=== PATIENT | male | born 1965 | race Caucasian/White ===

== ENCOUNTER 2016-07-27 19:57 | Emergency (ER) | payer OTHER ==
[2016-07-27 23:46] VITALS: BP 142/95
== END 2016-07-27 23:03 | disposition left against medical advice (07) ==
LOC: ED 19:57
DX: Z53.21 Procedure and treatment not carried out due to patient leaving prior to being seen by health care provider (principal)

== ENCOUNTER 2019-11-01 10:29 | Observation (INO) | payer OTHER, SELFPAY ==
[~2019-11-01] VITALS: Ht 172.7 cm; Wt 90.3 kg
--- NOTE | 2019-11-01 10:36 | NUR ---
EKG COMPLETED AT BEDSIDE BY KEITH KATZ, SIGNED BY DR VELASCO AND PLACED IN PT'S CHART.
--- NOTE | 2019-11-01 10:40 | NUR ---
PLACED IN BED OB FOR EVAL.
--- NOTE | 2019-11-01 11:00 | NUR ---
PT ARRIVES ALERT AND ORIENTED WITH ABD PAIN /. ABD ROUND AND FIRM WITH NO PALP MASSES PRESENT. C/O N/V/D SINCE WEDNESDAY AFTER TAKING AMOXICILLIN FOR A TOOTH INFECTION. PT ONLY TOOK 2 DAYS OF AB DUE TO THE N/V. PT ARRIVES SLIGHLTY PALE WITH DIAPHORESIS. DENIES FEVER BUT CLAIMS HE HAS CHILLS. CONNECTED TO [employer] AND AWAITING MD ALVARENGA
--- NOTE | 2019-11-01 11:22 | NUR ---
DR VELASCO SAW PT FOR EVAL
--- NOTE | 2019-11-01 11:33 | NUR ---
XRAY AT BEDSIDE
[2019-11-01 11:35] LABS: BASOPHIL % 0.5 % (0-2); PLATELET COUNT 333 x10^3mcL (130-400); RED CELL DISTRIBUTION WIDTH 13.1 % (11.5-14.5)
--- NOTE | 2019-11-01 12:00 | NUR ---
SPOKE TO DR VELASCO, NEW ORDER FOR PAIN MEDICATION, PT UNABLE TO URINATE AT THIS TIME.
[2019-11-01 12:04] LABS: CALCIUM 9.6 mg/dL (8.5-10.1); CARBON DIOXIDE 16.1 mmol/L (21-32); CHLORIDE SERUM 97 mmol/L (98-107); CREATININE SERUM 1.1 mg/dL (0.7-1.3); GFR1 > 60 mL/min; GLUCOSE SERUM 116 mg/dL (74-106); POTASSIUM SERUM 3.9 mmol/L (3.5-5.1); SODIUM SERUM 135 mmol/L (136-145)
[2019-11-01 12:08] LABS: ALBUMIN 4.3 g/dL (3.4-5.0); ALKALINE PHOSPHATASE 63 U/L (46-116); ALT/SGPT 18 U/L (16-63); AST/SGOT 16 U/L (15-37); BILIRUBIN TOTAL 1.2 mg/dL (0.20-1.00); LIPASE 95 IU/L (73-393)
--- NOTE | 2019-11-01 12:58 | NUR ---
PT LEFT FOR CT VIA RNEY
--- NOTE | 2019-11-01 13:33 | NUR ---
PT BACK FROM CT AND CONNECTED TO [employer]. NO VOMITING UPON ARRIVAL
[2019-11-01] MEDS ORDERED: TOPROL XL50 MG PO (14:12)
[2019-11-01] MEDS ORDERED: GRALISE600 MG PO (14:12)
--- NOTE | 2019-11-01 14:12 | NUR ---
PT UNABLE TO URINATE AT THIS TIME
--- NOTE | 2019-11-01 15:02 | NUR ---
CALLED DIANNE FOR REPORT. WILL CALL BACK TO ED WHEN READY FOR REPORT
--- NOTE | 2019-11-01 15:09 | NUR ---
REPORT GIVEN TO DIANNE HOROWITZ
--- NOTE | 2019-11-01 15:34 | NUR ---
RECEIVED PT FROM ED VIA WHEELCHAIR, CAME IN DUE TO NAUSEA, VOMITING AND ABDOMINAL PAIN. AAOX4. DENIES HEADACHE/DIZZINESS. NO SOB NOTED. DENIES COUGH. DENIES CHEST PAIN/PRESSURE. ABDOMEN IS DISTENDED AND FIRM. STATED THAT HE FEELS BLOATED AND HAS NAUSEA. LAST BM WAS ON 10/28/19, STARTED WITH DIARRHEA AND HAD LOOSE STOOLS AFTER. VOIDS. IV SITE PATENT AND INTACT. BP-164/107, PT STATED THAT HE HAS NOT BEEN TAKING HIS BLOOD PRESSURE MEDICATIONS DUE TO NAUSEA AND VOMITING. SIDE RAILS UPX2. CALL LIGHT ON REACH. PRIMARY NURSE DIANNE AT BEDSIDE FOR CONTINUITY OF CARE
[2019-11-01 15:56] VITALS: BP 164/107
[2019-11-01 15:58] VITALS: Ht 172.7 cm; Wt 90.3 kg
--- NOTE | 2019-11-01 18:32 | NUR ---
PT LYING IN BED A/A. ORIENTED X4. BREATHING EQUAL/UNLABORED ON RA. NO ACUTE CHANGES/DISTRESS. PT HAS ABD PAIN, ANNETTE. NO N/V. IVF INFUSING, SITE WNL. BED IN LOW POSITION, CALL LIGHT IN REACH, SAFETY PRECAUTIONS IN PLACE. WILL CONTINUE TO MONITOR AND ENDORSE TO NIGHT NURSE
[2019-11-01 19:57] VITALS: BP 187/99
--- NOTE | 2019-11-01 20:00 | NUR ---
PATIENT RECEIVED AWAKE, ALERT, ORIENTED X4 IN BED. RESPIRATION EVEN AND UNLABORED, ON ROOM AIR. DENIES DISCOMFORT AT THIS TIME. SALINE LOCK TO L AC PATENT AND INTACT. SKIN DRY AND INTACT. WILL CONTINUE TO MONITOR.
--- NOTE | 2019-11-01 20:26 | NUR ---
RECIEVED PT FROM SELMA.
--- NOTE | 2019-11-01 20:28 | NUR ---
REPORT GIVEN TO CELESTINA BARTON FOR CONTINUATION OF CARE.
--- NOTE | 2019-11-01 20:43 | NUR ---
PT BP:187/99. DR. GOLD NOTIFIED, NEW ORDERS RECIEVED.
--- NOTE | 2019-11-02 03:10 | NUR ---
PT RESTING COMFORTABLY IN BED, EASILY AROUSABLE. RR EVEN AND UNLABORED ON RA, CHEST RISING EQUALLY. NO SIGNS OF ACUTE CHANGE OR DISTRESS NOTED. BED IN LOWEST POSITION, SIDE RAILS UP X2, AND CALL LIGHT WITHIN REACH. WILL CONTINUE TO MONITOR.
[2019-11-02 05:42] VITALS: BP 176/95
--- NOTE | 2019-11-02 07:10 | NUR ---
RECIEVED BEDSIDE REPORT FROM NIGHT RN. PT AOX4 AND ABLE TO MAKE NEEDS KNOWN. RR EVEN AND UNLABORED ON RA. PT MED SURG. DROPLET PRECAUTIONS IN PLACE. PT AMBULATORY. IV IN LAC CDI WITH NO REDNESS OR SWELLING. CALL LIGHT WITHIN REACH. BED LOCKED IN LOWEST POSITION. WILL CONTINUE TO MONITOR.
[2019-11-02 07:13] LABS: BASOPHIL % 0.3 % (0-2); PLATELET COUNT 287 x10^3mcL (130-400); RED CELL DISTRIBUTION WIDTH 13.4 % (11.5-14.5)
[2019-11-02 07:51] LABS: CALCIUM 8.8 mg/dL (8.5-10.1); CARBON DIOXIDE 23.9 mmol/L (21-32); CHLORIDE SERUM 102 mmol/L (98-107); CREATININE SERUM 0.9 mg/dL (0.7-1.3); GFR1 > 60 mL/min; GLUCOSE SERUM 110 mg/dL (74-106); POTASSIUM SERUM 3.4 mmol/L (3.5-5.1); SODIUM SERUM 137 mmol/L (136-145)
[2019-11-02 08:38] VITALS: BP 148/95
--- NOTE | 2019-11-02 10:55 | NUR ---
COVID TEST PREFORMED AND TAKEN TO LAB. PT TOLERATED WELL.
[2019-11-02 12:09] VITALS: BP 160/89
--- NOTE | 2019-11-02 15:19 | NUR ---
PT PARTIALLY TOLERATED CLEAR LIQUID LUNCH. PT STATED HE DIDNT THROW UP BUT BECAME NAUSEOUS. PT REQUESTED TO HAVE CLEAR LIQUID DIET AGAIN FOR DINNER. SAID IF PT TOLEREATED LUNCH TO SWITCH TO REG DIET FOR DINNER. WILL CONTINUE TO MONITOR PT DIET.
[2019-11-02 16:14] VITALS: BP 160/89
--- NOTE | 2019-11-02 17:15 | NUR ---
PT IN BED RESTING. NO ACUTE DISTRESS. RR EVEN AND UNLABORED ON RA. PT DENIES CHEST PAIN AND PRESSURE. HOB ELEVATED. PT HAS BSC. HARRIET RAILS UPX2. CALL LIGHT WITHIN REACH. BED LOCKED IN LOWEST POSITION. WILL CONTINUE TO MONITOR.
--- NOTE | 2019-11-02 19:09 | NUR ---
ENDORSED CARE TO NIGHT RN. PT IN BED RESTING. NO ACUTE DISTRESS. HOB ELEVATED. PT DENIES SOB/ CHEST PAIN ON RA. CALL LIGHT WITHIN REACH.
--- NOTE | 2019-11-02 19:13 | NUR ---
RECEIVED REPORT FROM DAY SHIFT NURSE. PT A/OX4. MED SURG. PT DENIES CHEST PAIN OR PRESSURE. PULSES PALPABLE. NO EDEMA PRESENT. RR EVEN AND UNLABORED ON RA. PT C/O SOB WHILE AMBULATING. BSC PROVIDED. VOIDS FREELY. PT HAS 3 MISSING FINGERS ON R HAND. NO C/O PAIN OR DISCOMFORT AT THIS TIME. IV TO LAC INFUSING D5NS AT 100ML/HR. ON DROPLET/CONTACT ISOLATION FOR R/O COVID. CALL LIGHT WITHIN REACH. BED IN LOWEST POSITION. WILL CONTINUE TO MONITOR.
[2019-11-02 20:39] VITALS: BP 154/103
--- NOTE | 2019-11-03 01:16 | NUR ---
PT SLEEPING CONFORTABLY AT THIS TIME. NO SIGN OF ACUTE DISTRESS NOTED. RR EVEN AND UNLABORED ON RA. CALL LIGHT WITHIN REACH. WILL CONTINUE TO MONITOR.
[2019-11-03 05:47] VITALS: BP 142/96
--- NOTE | 2019-11-03 06:20 | NUR ---
PT AWAKE/RESTING IN BED AT THIS TIME. NO SIGNS OF ACUTE DISTRESS NOTED. PT REPORTED FEELING BETTER, DENIES N/V OR DIARREA. PT TOLERATES CLEAR LIQUIDS 11/01 WELL. NO C/O PAIN OR DISCOMFORT. IV TO LAC, PATENT AND INTACT. D5NS INFUSING. CALL LIGHT WITHIN REACH. ALL NEEDS/CONCERNS ADDRESSED THROUGHOUT THE SHIFT. WILL ENDORSE CARE TO ONCOMING SHIFT NURSE.
[2019-11-03 07:11] LABS: BASOPHIL % 0.2 % (0-2); PLATELET COUNT 281 x10^3mcL (130-400); RED CELL DISTRIBUTION WIDTH 13.8 % (11.5-14.5)
--- NOTE | 2019-11-03 07:15 | NUR ---
RECOEVED PT RESTING IN BED WITH NO ACUTE DISTRESS NOTED AT THIS TIME, ASSESSMENT PERFORMED AT THIS TIME, PT IS A/OX4 NO COMPLAINTS OF BLOOM OR DIZZINESS, SPEAKS CLEAR, ABLE TO MAKE NEEDS KNOWN, PT DENIES PAIN OR SOB AT THIS ITME, IV TO THE LAC, NO REDNESS OR SWELLING AT THIS TIME, FLUSHES WELL, VSS, ALL NEEDS ATTNEDED TO AT THIS TIME, SAFETY PRECAUTIONS IN PLACE WILL CONTINUE TO MONITOR.
[2019-11-03 07:44] LABS: CARBON DIOXIDE 23.2 mmol/L (21-32); CHLORIDE SERUM 101 mmol/L (98-107); CREATININE SERUM 0.8 mg/dL (0.7-1.3); GFR1 > 60 mL/min; GLUCOSE SERUM 102 mg/dL (74-106); POTASSIUM SERUM 3.7 mmol/L (3.5-5.1); SODIUM SERUM 137 mmol/L (136-145)
[2019-11-03 08:45] VITALS: BP 148/99
--- NOTE | 2019-11-03 10:00 | NUR ---
INFECTION CONTROL CALLED BACK AND REPORTED COVID 19 SWAB CAME BACK NEGATIVE
--- NOTE | 2019-11-03 10:52 | NUR ---
PT RESTING IN BED WITH NO ACUTE DISTRESS NOTED AT THIS TIME, ALL PT NEEDS ATTNEDED TO AT THIS TIME, SAFETY PRECAUTIONS IN PLACE WILL CONTINUE TO MONITOR.
--- NOTE | 2019-11-03 12:07 | NUR ---
REPORTED TO DR GARCIA THAT COVID CAME BACK NEGATIVE, SAID TO DC ISOLATION
--- NOTE | 2019-11-03 13:10 | NUR ---
REPORT GIVEN TO VERONICA BARTON, PT IS STABLE AND ALL NEEDS ARE ATTENDED TO AT THIS TIME.
[2019-11-03] MEDS ORDERED: ZOFRAN4 M3 PO (14:40)
[2019-11-03 14:59] VITALS: BP 148/99
--- NOTE | 2019-11-03 15:25 | NUR ---
GIVE THE DISCHARGE INSTRUCTION TO THE PT. PT SIGNED ALL DISCHARGE PAPER, DISCHARGE DOCUMENT GAVE THE PT. PT IS DRESSING AND CALLING FAMILY TO PICK HIM UP. WILL CONTINUE TO MONITOR THE PT.
--- NOTE | 2019-11-03 16:11 | NUR ---
TOOK PT DOWN WITH WHEEL CHAIR. PT IS A/O X4, NO RESPIRATORY DISTRESS, DENY ANY N/V BEFORE DISCHARGE. IV REMOVED.
== END 2019-11-03 16:05 | disposition home or self-care (01) ==
LOC: ED 10:29 → MU 14:03 → DU 14:03 → MU 15:32
PROVIDERS: Emergency Medicine; ADMIT Internal Medicine; ATTEND Internal Medicine
DX: R10.9 Unspecified abdominal pain (principal); R11.2 Nausea with vomiting, unspecified; K52.9 Noninfective gastroenteritis and colitis, unspecified; I10 Essential (primary) hypertension; E86.0 Dehydration; Z20.828 Contact with and (suspected) exposure to other viral communicable diseases
CPT/HCPCS: C9113; G0378; J1885; J2405; J2765; J7042; Q0092; U0003-CS